=== PATIENT | female | born 1995 | race American Indian/Alaskan Native ===

== ENCOUNTER 2020-03-10 16:01 | Outpatient (CLI) | payer MEDICAID ==
[2020-03-10 16:38] VITALS: BP 120/64
[2020-03-10 18:09] LABS: Bilirubin,Urine NEG (Negative); Blood,Urine NEG (Negative); Color,Urine Yellow (Yellow); Mucus,Urine 1+ /HPF
== END 2020-03-10 18:33 | disposition home or self-care (01) ==
LOC: TRG 16:01 → APU 16:02 → TRG 18:33
PROVIDERS: ATTEND Obstetrics & Gynecology
DX: O47.02 False labor before 37 completed weeks of gestation, second trimester (principal); Z3A.26 26 weeks gestation of pregnancy
CPT/HCPCS: 81001; 87086